=== PATIENT | female | born 1995 | race Caucasian/White ===

== ENCOUNTER 2019-12-06 16:30 | Outpatient (REF) | payer MEDICAID, SELFPAY ==
[2019-12-10 14:36] LABS: SARS-CoV-2 RNA Undetected (Undetected); SARS-CoV-2 Specimen Source Nasal
== END 2019-12-06 16:50 ==
LOC: NCHCN 16:30
PROVIDERS: Visit Provider Internal Medicine
DX: Z20.828 Contact with and (suspected) exposure to other viral communicable diseases (principal)
CPT/HCPCS: U0003

== ENCOUNTER 2019-12-22 17:46 | Outpatient (REF) | payer MEDICAID, SELFPAY ==
[2019-12-27 16:42] LABS: SARS-CoV-2 RNA Undetected (Undetected); SARS-CoV-2 Specimen Source Nasal
== END 2019-12-22 18:06 ==
LOC: NCHCN 17:46
PROVIDERS: PCP Physician Assistant; Visit Provider Physician Assistant
DX: Z20.828 Contact with and (suspected) exposure to other viral communicable diseases (principal)
CPT/HCPCS: U0003

== ENCOUNTER 2021-04-12 18:17 | Outpatient (REF) | payer MEDICAID, SELFPAY ==
[2021-04-20 05:09] LABS: Benzoylecgonine 109 ng/mL (Cutoff: 50); Cocaine Negative ng/mL (Cutoff: 50); Cocaine Interpretation Positive.
== END 2021-04-12 18:18 | disposition home or self-care (01) ==
LOC: NCHCN 18:17
PROVIDERS: PCP Physician Assistant; Visit Provider Physician Assistant
DX: F11.20 Opioid dependence, uncomplicated (principal)
CPT/HCPCS: 80353

== ENCOUNTER 2021-04-17 17:42 | Outpatient (REF) | payer MEDICAID, SELFPAY | END 2021-04-17 17:43 | disposition home or self-care (01) | LOC: NCHCN 17:42 | PROVIDERS: PCP Physician Assistant; Visit Provider Physician Assistant ==

== ENCOUNTER 2021-04-18 21:27 | Outpatient (REF) | payer MEDICAID, SELFPAY ==
[2021-04-25 06:22] LABS: Benzoylecgonine 1427 ng/mL (Cutoff: 50); Cocaine Negative ng/mL (Cutoff: 50); Cocaine Interpretation Positive.
== END 2021-04-18 21:28 | disposition home or self-care (01) ==
LOC: NCHCN 21:27
PROVIDERS: PCP Physician Assistant; Visit Provider Physician Assistant
DX: F14.10 Cocaine abuse, uncomplicated (principal)
CPT/HCPCS: 80353; 82520

== ENCOUNTER 2022-03-12 09:02 | Outpatient (REF) | payer MEDICAID, SELFPAY ==
[2022-03-12 19:01] LABS: Bilirubin Negative (Negative); Blood Large (Negative); Clarity Cloudy (Clear); Glucose Negative (Negative); Ketones Negative (Negative); Leukocyte Esterase Small (Negative); Nitrite Negative (Negative); Specific Gravity >= 1.030 (1.005-1.025); Urobilinogen 0.2 EU/dL (Up TO 0.2)
[2022-03-12 19:29] LABS: Epithelial Cells Few HPF (Negative); WBC 20-50 HPF (0-5)
[2022-03-12 19:30] LABS: Bacteria Many HPF (Negative); C & S Indicated? Yes; Casts Negative LPF (Negative); Crystals Negative HPF (Negative); Mucus Trace (Negative)
== END 2022-03-12 09:03 | disposition home or self-care (01) ==
LOC: NCHCN 09:02
PROVIDERS: PCP Physician Assistant; Visit Provider Nurse Practitioner Family
DX: N89.8 Other specified noninflammatory disorders of vagina (principal); R30.0 Dysuria
CPT/HCPCS: 87077; 87491; 87591; 81003; 81015; 87086; 87186

== ENCOUNTER 2022-09-12 17:41 | Outpatient (REF) | payer MEDICAID, SELFPAY ==
--- NOTE | 2022-09-12 12:18 | PAPFT_PTH ---
PATIENT: Lisbeth Flowers LOC: [facility]#:[id number] AGE/SX: 26/F ROOM: RE09/12/[address]: Shelby Cardoso : 1995 BED: DIS: 09/12/2022 SPEC #: [id number] RECD: 09/13/22 12:59 STATUS: LG REQ #: [id number] ALANNA: 09/12/22 12:[address]: Annmarie Cardoso DEPT: COUNTS INCLUDE 234 BEDS AT THE [facility] Cytology RECD BY: Negrita Phelps ENTERED: 09/13/22 13:00 SP TYPE: PAPFT OTHR DR: Tash Ramos Tissues: 1 - CX/ENDOCX FOR PAP SMEARS Procedures: PAP THIN PREP/[facility] Screening Comments: [id number] (CHLAMYDIA\GC)
[2022-09-12 18:56] LABS: Bilirubin Negative (Negative); Blood Negative (Negative); Clarity Clear (Clear); Glucose Negative (Negative); Ketones Negative (Negative); Leukocyte Esterase Negative (Negative); Nitrite Negative (Negative); Specific Gravity 1.015 (1.005-1.025); Urobilinogen 0.2 mg/dL (Up to 0.2)
[2022-09-12 19:16] LABS: Anion Gap 7.7 mmol/L (3-11); BUN 10 mg/dL (7-18); CO2 27.3 mmol/L (21.0-32.0); CREATININE 0.9 mg/dL (0.55-1.02); Calcium 9.1 mg/dL (8.5-10.1); Chloride 101 mmol/L (98-107); Estimated GFR 89.86 (mL/min/1.73m2); Glucose 105 mg/dL (74-106); Sodium 136 mmol/L (136-145); TSH (W/Ref FT4) 1.99 uIU/mL (0.36-3.74)
[2022-09-16 09:08] LABS: HIV-1/2 Ag & Ab Screen Negative (Negative)
[2022-09-16 09:29] LABS: Hepatitis C Ab w Rflx HCV PCR Negative (Negative)
[2022-09-16 11:26] LABS: Syphilis Serology (RPR) Negative (Negative)
[2022-09-16 14:38] LABS: Chlamydia Result Negative (Negative); GC Result Negative (Negative)
== END 2022-09-12 17:42 | disposition home or self-care (01) ==
LOC: NCHCN 17:41
PROVIDERS: PCP Physician Assistant; Visit Provider Nurse Practitioner Family
DX: R63.4 Abnormal weight loss (principal); Z11.3 Encounter for screening for infections with a predominantly sexual mode of transmission; Z11.4 Encounter for screening for human immunodeficiency virus [HIV]; R30.0 Dysuria; Z11.59 Encounter for screening for other viral diseases; N76.0 Acute vaginitis; Z12.4 Encounter for screening for malignant neoplasm of cervix
CPT/HCPCS: 80048; 86803; 87389; 87491; 87591; 88142; 81003; 84443; 86592; 87480; 87510; 87660